=== PATIENT | female | born 1975 | race Caucasian/White ===

== ENCOUNTER 2016-09-15 11:52 | Emergency (ER) | payer MEDICAID ==
[2016-09-15 11:58] VITALS: TEMP 98.2
--- NOTE | 2016-09-15 12:05 | EDPHY ---
H & P Smoking Status: Never smoked Time Seen by Provider: 09/15/16 12:02 HPI/ROS: CHIEF COMPLAINT: Right lower back pain HISTORY OF PRESENT ILLNESS: The patient is a 41-year-old female who presents with right lower quadrant pain. This pain radiates through to her lower back. She has associated sharp vaginal pains. Her pain is worse with movement. Patient additionally notes increased weakness and fatigue. LMP was 3 weeks ago, it was normal at that time. The patient gave 9 months ago, she is . She denies urinary complaints. No nausea, vomiting, or diarrhea. REVIEW OF SYSTEMS: A comprehensive 10 point review of systems is otherwise negative aside from elements mentioned in the history of present illness. (Kesha Slater) Past Medical/Surgical History: Kidney stones. Gave 9 months ago, currently breast feeding. (Kesha Slater) Social History: (Kesha Slater) Physical Exam: General Appearance: Alert, pleasant Eyes: Pupils equal and round, no conjunctival pallor or injection ENT, Mouth: Mucous membranes moist Neck: Normal inspection Respiratory: Lungs are clear to auscultation Cardiovascular: Regular rate and rhythm Gastrointestinal: Abdomen is soft, RLQ tenderness Neurological: A&O, nonfocal, normal gait Skin: Warm and dry, no rash Extremities: Nontender, no pedal edema Psychiatric: Mood and affect normal (Kesha Slater) Constitutional: Initial Vital Signs Temperature (C) 36.8 C 09/15/16 11:55 Heart Rate 86 09/15/16 11:55 Respiratory Rate 17 09/15/16 11:55 Blood Pressure 146/96 H 09/15/16 11:55 O2 Sat (%) 96 09/15/16 11:55 O2 Delivery Mode Room Air Allergies/Adverse Reactions: No Known Allergies Allergy (Unverified 09/15/16 11:55) Home Medications: Medication Instructions Recorded Ondansetron Odt [Zofran Odt 4 mg 4 mg PO Q4 PRN #20 tab 09/15/16 (RX)] oxyCODONE/APAP 5/325 [Percocet 1 - 2 tab PO Q4H PRN #10 tab 09/15/16 5/325] Medical Decision Making - Diagnostics Imaging: Discussed imaging studies w/ call worker person Radiologist - Diagnostics Imaging Results: Imaging Impressions Abdomen/Pelvis Ultrasound 09/15/16 12:18 Impression: 1. Mild right hydronephrosis. 2. Simple left renal cyst. Findings discussed with Kesha Slater MD on September 15, 2016 at 1441 hours. ED Course/Re-evaluation: Patient presents with intermittent RLQ pain, concerning for ovarian cyst/ torsion versus kidney stone. Stat test is negative. Plan for abdominal ultrasound. Labs and urinalysis ordered. IV was established, patient received fluids. Urinalysis reveals leukocytes and blood. She does not have urinary symptoms. I ordered a urine culture and will wait for urine culture results prior to treating her. 1440: US results were called to me by the radiologist. US shows complex bilateral ovarian cysts and mild right hydronephrosis. I ordered CT abd/pelv. 1450: I discussed findings with the patient. CT scan of the abdomen pelvis ordered to rule out kidney stone. This was signed over to Dr. Beckford at shift change. If the CT scan is negative, she will follow up with gynecology in the office. (Kesha Slater) 4:00 p[address] we discussed the CT results. She will follow up with OB within 6 months for repeat ultrasound of her ovaries. We discussed follow-up with Urology as well for her kidney stones. She has passed the kidney stone today and is currently asymptomatic. She is happy with this plan and declines further workup or testing. I will prescribe her pain and nausea medication in case 1 of her other stones passes. She is currently breast-feeding so cannot have Toradol. She also requests a referral to primary care physician. (Mohsen Beckford) Differential Diagnosis: Differential diagnosis includes though it is not limited to ectopic , ovarian cyst, ovarian torsion, PID, UTI, appendicitis. (Kesha Slater) - Data Points Laboratory Results: Laboratory Results 09/15/16 12:10 09/15/16 12:10 09/15/16 09/15/16 09/15/16 12:55 12:10 12:10 WBC RBC Hgb Hct MCV MCH MCHC RDW Plt Count MPV Neut % (Auto) Lymph % (Auto) Sullivan % (Auto) Eos % (Auto) Baso % (Auto) Nucleat RBC Rel Count Absolute Neuts (auto) Absolute Lymphs (auto) Absolute Monos (auto) Absolute Eos (auto) Absolute Basos (auto) Absolute Nucleated RBC Immature Gran % Immature Gran # Sodium 143 mEq/L mEq/L (134-144) Potassium 4.6 mEq/L mEq/L (3.5-5.2) Chloride 109 mEq/L mEq/L (97-110) Carbon Dioxide 22 mEq/l mEq/l (22-31) Anion Gap 12 mEq/L mEq/L (8-16) BUN 15 mg/dL mg/dL (7-23) Creatinine 0.7 mg/dL mg/dL (0.6-1.0) Estimated GFR > 60 Glucose 84 mg/dL mg/dL (70-100) Calcium 9.4 mg/dL mg/dL (8.5-10.4) Beta HCG, Qual NEGATIVE Urine Color YELLOW Urine Appearance MODERATELY TURBID Urine pH 7.0 (5.0-7.5) Ur Specific [place] 1.010 (1.002-1.030) Urine Protein NEGATIVE (NEGATIVE) Urine Ketones NEGATIVE (NEGATIVE) Urine Blood 2+ H (NEGATIVE) Urine Nitrate NEGATIVE (NEGATIVE) Urine Bilirubin NEGATIVE (NEGATIVE) Urine Urobilinogen NEGATIVE EU EU (0.2-1.0) Ur Leukocyte Esterase TRACE H (NEGATIVE) Urine RBC 15-25 /hpf H /hpf (0-3) Urine WBC 3-5 /hpf H /hpf (0-3) Ur Epithelial Cells 1+ /lpf /lpf (NONE-1+) Urine Bacteria TRACE /hpf H /hpf (NONE SEEN) Urine Mucus TRACE /lpf /lpf (NONE-1+) Urine Glucose NEGATIVE (NEGATIVE) 09/15/16 12:10 WBC 10.99 10^3/uL H 10^3/uL (3.80-9.50) RBC 4.52 10^6/uL 10^6/uL (4.18-5.33) Hgb 12.9 g/dL g/dL (12.6-16.3) Hct 38.7 % % (38.0-47.0) MCV 85.6 fL fL (81.5-99.8) MCH 28.5 pg pg (27.9-34.1) MCHC 33.3 g/dL g/dL (32.4-36.7) RDW 12.9 % % (11.5-15.2) Plt Count 274 10^3/uL 10^3/uL (150-400) MPV 10.4 fL fL (8.7-11.7) Neut % (Auto) 76.3 % H % (39.3-74.2) Lymph % (Auto) 13.3 % L % (15.0-45.0) Sullivan % (Auto) 8.6 % % (4.5-13.0) Eos % (Auto) 1.1 % % (0.6-7.6) Baso % (Auto) 0.4 % % (0.3-1.7) Nucleat RBC Rel Count 0.0 % % (0.0-0.2) Absolute Neuts (auto) 8.39 10^3/uL H 10^3/uL (1.70-6.50) Absolute Lymphs (auto) 1.46 10^3/uL 10^3/uL (1.00-3.00) Absolute Monos (auto) 0.95 10^3/uL H 10^3/uL (0.30-0.80) Absolute Eos (auto) 0.12 10^3/uL 10^3/uL (0.03-0.40) Absolute Basos (auto) 0.04 10^3/uL 10^3/uL (0.02-0.10) Absolute Nucleated RBC 0.00 10^3/uL 10^3/uL (0-0.01) Immature Gran % 0.3 % % (0.0-1.1) Immature Gran # 0.03 10^3/uL 10^3/uL (0.00-0.10) Sodium Potassium Chloride Carbon Dioxide Anion Gap BUN Creatinine Estimated GFR Glucose Calcium Beta HCG, Qual Urine Color Urine Appearance Urine pH Ur Specific [place] Urine Protein Urine Ketones Urine Blood Urine Nitrate Urine Bilirubin Urine Urobilinogen Ur Leukocyte Esterase Urine RBC Urine WBC Ur Epithelial Cells Urine Bacteria Urine Mucus Urine Glucose Medications Given: Discontinued Medications Sodium Chloride (Ns) 1,000 mls @ 0 mls/hr IV ONCE ONE PRN Reason: Wide Open Stop: 09/15/16 12:53 Last Admin: 09/15/16 12:53 Dose: 1,000 mls Departure - Departure Disposition: Home, Routine, Self-Care Clinical Impression: Kidney stone Ovarian cyst Qualifiers: Laterality: bilateral Qualified Code(s): N83.201 - Unspecified ovarian cyst, right side Condition: Good Instructions: Ovarian Cyst (ED), Kidney Stones (ED) Additional Instructions: Ibuprofen 600 mg 3 times daily while the pain persists. You have been referred to an [facility]ER below, please call to arrange a followup appointment. You will need to have a repeat ultrasound. Referrals: Edwige De Souza MD [Medical Doctor] - As per Instructions (Surgical Services Asst) Kairne Romero MD [place] [place] - As per Instructions Beau Verde MD [Medical Doctor] - As per Instructions Prescriptions: Ondansetron Odt [Zofran Odt 4 mg (RX)] 4 mg PO Q4 PRN #20 tab PRN Reason: Nausea & Vomiting oxyCODONE/APAP 5/325 [Percocet 5/325] 1 - 2 tab PO Q4H PRN #10 tab PRN Reason: Pain, Severe Report Scribed for: Kesha Slater Report Scribed by: Shantelle Seals Date of Report: 09/15/16 Time of Report: 12:04 Physician Review and Approval Statement: 09/15/16 12:04 Portions of this note were transcribed by a medical staffing coordinator. I personally performed the history, physical exam, and medical decision-making; and confirmed the accuracy of the information in the transcribed note. (Kesha Slater)
[2016-09-15 12:26] LABS: % IMMATURE GRANULYOCYTES 0.3 % (0.0-1.1); ABSOLUTE IMMATURE GRANULOCYTES 0.03 10^3/uL (0.00-0.10); ADD DIFF? NO; ADD MORPH? NO; ADD SCAN? NO; ATYPICAL LYMPHOCYTE FLAG 0 (0-99); FRAGMENT RBC FLAG 0 (0-99); HEMATOCRIT 38.7 % (38.0-47.0); HEMOGLOBIN 12.9 g/dL (12.6-16.3); LEFT SHIFT FLG 0 (0-99); LIPEMIA HEMOLYSIS FLAG 80 (0-99); MEAN CELL HEMOGLOBIN 28.5 pg (27.9-34.1); MEAN CELL HEMOGLOBIN CONCENTR. 33.3 g/dL (32.4-36.7); MEAN CELL VOLUME 85.6 fL (81.5-99.8); MEAN PLATELET VOLUME 10.4 fL (8.7-11.7); PLATELET CLUMPS FLAG 0 (0-99); PLATELET COUNT 274 10^3/uL (150-400); RED BLOOD CELL COUNT 4.52 10^6/uL (4.18-5.33); RED CELL DISTRIBUTION WIDTH 12.9 % (11.5-15.2)
[2016-09-15] MEDS ORDERED: NS 1,000 ML IV ONE (12:52)
[2016-09-15 12:57] LABS: ANION GAP 12 mEq/L (8-16); CALCIUM 9.4 mg/dL (8.5-10.4); CARBON DIOXIDE 22 mEq/l (22-31); CHLORIDE 109 mEq/L (97-110); CREATININE 0.7 mg/dL (0.6-1.0); GLOMERULAR FILTRATION RATE > 60; GLUCOSE 84 mg/dL (70-100); POTASSIUM 4.6 mEq/L (3.5-5.2); SODIUM 143 mEq/L (134-144)
[2016-09-15 13:06] LABS: COLOR YELLOW; LEUKOCYTE ESTERASE,URINE TRACE (NEGATIVE); NITRITE,URINE NEGATIVE (NEGATIVE)
[2016-09-15 13:09] LABS: BACTERIA TRACE /hpf (NONE SEEN); MUCUS TRACE /lpf (NONE-1+); RBC,URINE 15-25 /hpf (0-3)
[2016-09-15 15:34] VITALS: BP 144/99; PULSE 71; RESP 16; O2SAT 97
== END 2016-09-15 16:28 | disposition home or self-care (01) ==
DX: N20.0 Calculus of kidney (principal); N83.201 Unspecified ovarian cyst, right side